=== PATIENT | female | born 1965 | race Two or more races ===

== ENCOUNTER 2017-08-24 18:39 | Emergency (ER) | payer MEDICAID, OTHER ==
[~2017-08-24] VITALS: Ht 162.6 cm; Wt 99.8 kg
[2017-08-24 18:52] VITALS: BP 130/81
[2017-08-24 19:17] LABS: Basophils # (auto) 0.1 uL; Basophils % (auto) 1.9 % (0.0-2.0); Eosinophils # (auto) 0.1 uL; Eosinophils % (auto) 2.3 % (0.0-7.0); Hematocrit 37.8 % (36.0-46.0); Hemoglobin 13.7 g/dL (12.2-16.2); Lymphocytes # (auto) 2.7 uL; Lymphocytes % (auto) 44.7 % (10.0-50.0); Mean Corpuscular Hemoglobin 31.6 pg (28.0-32.0); Mean Corpuscular Hgb Conc. 36.3 g/dL (32.0-36.0); Mean Corpuscular Volume 87.1 fL (80.0-100.0); Mean Platelet Volume 8.6 fL (6.9-10.8); Monocytes # (auto) 0.4 uL; Monocytes % (auto) 7.2 % (0.0-12.0); Neutrophils # (auto) 2.6 uL; Neutrophils % (auto) 43.9 % (37.0-80.0); Nucleated Red Blood Cells % 0.6 %; Platelet Count (auto) 209 10^3/uL (140-450); Red Cell Distribution Width 14.6 % (11.8-14.3)
[2017-08-24 19:42] LABS: Albumin 3.5 g/dL (3.4-5.0); Alkaline Phosphatase 93 U/L (45-117); Anion Gap 8 (5-15); Bilirubin, Total 0.5 mg/dL (0.2-1.0); Calcium 7.5 mg/dL (8.5-10.1); Carbon Dioxide 22 mmol/L (21-32); Chloride 106 mmol/L (98-107); GFR African American 139 mL/min; GFR Non-African American 115 mL/min; Glucose 176 mg/dL (74-106); Potassium 3.9 mmol/L (3.5-5.1); Sodium 136 mmol/L (136-145)
[2017-08-24 20:07] LABS: Blood Urea Nitrogen 13 mg/dL (7-18)
[2017-08-24 20:47] LABS: Aspartate Aminotransferase 66 U/L (15-37)
== END 2017-08-24 20:17 | disposition home or self-care (01) ==
LOC: EDBD 18:39 → ER 18:49
DX: R07.9 Chest pain, unspecified (principal); G89.4 Chronic pain syndrome; I50.9 Heart failure, unspecified; F17.210 Nicotine dependence, cigarettes, uncomplicated; I48.91 Unspecified atrial fibrillation; N18.9 Chronic kidney disease, unspecified; E11.22 Type 2 diabetes mellitus with diabetic chronic kidney disease; I13.0 Hypertensive heart and chronic kidney disease with heart failure and stage 1 through stage 4 chronic kidney disease, or unspecified chronic kidney disease; I25.2 Old myocardial infarction; K21.9 Gastro-esophageal reflux disease without esophagitis; Z88.6 Allergy status to analgesic agent
CPT/HCPCS: 36415; 71010; 80053; 83735; 84484; 85025; 93005; 94761

== ENCOUNTER 2018-05-07 23:41 | Emergency (ER) | payer MEDICAID ==
[~2018-05-07] VITALS: Ht 162.6 cm; Wt 98.4 kg
[~2018-05-07 23:41] MED LIST: ASPI81CH43 PO; GEMF600T3 PO; INSLANTI SC; INSU100I2 SC; MET25T PO
[2018-05-08 00:37] VITALS: BP 183/88
== END 2018-05-08 05:25 | disposition left against medical advice (07) ==
LOC: EDBD 23:41 → ER 23:41
DX: R07.89 Other chest pain (principal); Z53.21 Procedure and treatment not carried out due to patient leaving prior to being seen by health care provider
CPT/HCPCS: 71045; 93005